=== PATIENT | female | born 1980 | race Hispanic/Latino ===

== ENCOUNTER 2017-05-26 00:08 | Emergency (ER) | payer MEDICAID ==
[2017-05-26 00:08] VITALS: BMI 21.4
[2017-05-26 00:29] VITALS: BP 133/75; PULSE 76; RESP 18; TEMP 97.6; O2SAT 100
--- NOTE | 2017-05-26 01:06 | ED PDOC ---
HPI: Headache Time Seen by Provider: 05/26/17 00:31 Chief Complaint (Nursing): Headache Additional Complaint(s): 36 YO F w/ a h/o anxiety presents to the ER, because she states she has been having increased "head pain", she currently denies any symptoms of such, but states when she does get this it is associated with light headedness and palpations. She has been dealing with a lot of stress in her life, with family issues, and these have caused her symptoms to worsen. She takes aspirin when she has these episodes. She has also been noticing increased bruising on her body, which has been occurring over the last two years, without any trauma and denies domestic violence. - Currently denies any chest pain, SOB, Nausea, Vomiting, weakness, dizziness PMH: Anxiety PSH: None Allergies Chlorpheniramine, nicacin, phenylephrine FH: Father had breast cancer, mother has htn and sjogrens SH: Social drinking, occasional cigarette, denies any illicit drug use Past Medical History Vital Signs: Last Vital Signs Temp 97.6 F 05/26/17 00:24 Pulse 76 05/26/17 00:24 Resp 18 05/26/17 00:24 BP 133/75 05/26/17 00:24 Pulse Ox 100 05/26/17 00:24 - Medical History PMH: Anemia, Anxiety Denies: Diabetes, Hepatitis, HIV, HTN, Seizures, Sexually Transmitted Disease - Family History Family History: States: Unknown Family Hx - Home Medications Home Medications: Ambulatory Orders Medication Instructions Recorded No Known Home Med 11/15/16 - Allergies Allergies/Adverse Reactions: Allergies Allergy/AdvReac Type Severity Reaction Status Date / Time chlorpheniramine Allergy SHORTNESS Verified 11/15/16 11:02 OF BREATH niacin Allergy REDNESS Verified 11/15/16 11:02 phenylephrine Allergy SHORTNESS Verified 11/15/16 11:02 OF BREATH Review of Systems ROS Statement: Except As Marked, All Systems Reviewed And Found Negative Constitutional: Negative for: Fever Eyes: Negative for: Vision Change Cardiovascular: Negative for: Chest Pain Physical Exam - Physical Exam Appears: Positive for: No Acute Distress Skin: Positive for: Normal Color (2 x2 cm superficial abrasion on left scapular region. Small bruise noticed under left tricep and right calf) Eye Exam: Positive for: Normal appearance Cardiovascular/Chest: Positive for: Regular Rate, Rhythm Respiratory: Positive for: Normal Breath Sounds Gastrointestinal/Abdominal: Positive for: Normal Exam, Soft DTR - Knee (R): 3+ DTR - Knee (L): 3+ Neurologic/Psych: Positive for: Alert, kaitara taraka II-XII, Oriented, Gait - Laboratory Results Result Diagrams: 05/26/17 01:17 05/26/17 01:17 - ECG O2 Sat by Pulse Oximetry: 100 - Progress ED Course And Treament: 36 YO F w/ h/o anxiety presents to the ER for having increased episodes of " head pains" 1) Stress induced headaches ( currently asymptomatic) - CBC, CMP: WNL - currently asymptomatic - Encouraged patient to exercise daily and incorporate meditation and stress relieving methods to her daily activity. 2) Easy bruising - CBC: Unremarkable - Coagulation profile: Unremarkable Medical Decision Making Medical Decision Makin YO F w/ h/o anxiety presents to the ER for having increased episodes of " head pains" 1) Stress induced headaches ( currently asymptomatic) - CBC, CMP: WNL - currently asymptomatic - Encouraged patient to exercise daily and incorporate meditation and stress relieving methods to her daily activity. 2) Easy bruising - CBC: Unremarkable - Coagulation profile: Unremarkable Disposition - Clinical Impression Clinical Impression: Bruising - Disposition Referrals: Bravo Landa MD [Staff Provider] - Disposition Time: 02:30 Condition: GOOD Additional Instructions: Avoid stresses, exercise daily, practice relaxation techniques. If symptoms worsen return to the ER. Follow up w/ PMD in 2-3 days. - CBC, CMP, coagulation profile was all within normal limit. Print Language: YORUBA
[2017-05-26 01:21] LABS: BASO # 0.1 K/uL (0.0-0.2); BASO % 1.1 % (0.0-2.0); EOS # 0.3 K/uL (0.0-0.7); EOS % 4.5 % (0.0-4.0); HEMATOCRIT 37.5 % (34.0-47.0); LYMPH # 1.7 K/uL (1.0-4.3); LYMPH % 30.7 % (20.0-40.0); MEAN CELL VOLUME 81.2 fl (81.0-99.0); MEAN CORPUSCULAR HEMOGLOBIN 26.4 pg (27.0-31.0); MEAN CORPUSCULAR HGB CONC 32.5 g/dL (33.0-37.0); MEAN PLATELET VOLUME 8.7 fl (7.2-11.7); MONO # 0.6 K/uL (0.0-0.8); MONO % 11.2 % (0.0-10.0); NEUT % 52.5 % (50.0-75.0); RED CELL DISTRIBUTION WIDTH 13.9 % (11.5-14.5); WHITE BLOOD COUNT 5.7 K/uL (4.8-10.8)
[2017-05-26 01:33] LABS: ALB/GLOB RATIO 1.4 (1.0-2.1); ALKALINE PHOSPHATASE 58 U/L (38-126); ALT/SGPT 35 U/L (9-52); AST/SGOT 24 U/L (14-36); BILIRUBIN,TOTAL 0.4 mg/dl (0.2-1.3); BLOOD UREA NITROGEN 18 mg/dl (7-17); CALCIUM 9.3 mg/dL (8.4-10.2); CARBON DIOXIDE 30 mmol/L (22-30); CHLORIDE 101 mmol/L (98-107); GFR AFRICAN-AMERICAN > 60; GLUCOSE,RANDOM 89 mg/dL (65-105); POTASSIUM 4.1 MMOL/L (3.6-5.0); SODIUM 139 mmol/l (132-148); TOTAL PROTEIN 7.8 G/DL (6.3-8.2)
[2017-05-26 01:46] LABS: PARTIAL THROMBOPLASTIN TIME 30.4 Seconds (25.6-37.1)
== END 2017-05-26 02:58 | disposition home or self-care (01) ==
LOC: H.ER 00:08
DX: R51 Headache (principal); F41.9 Anxiety disorder, unspecified

== ENCOUNTER 2018-02-15 21:17 | Emergency (ER) | payer MEDICAID ==
[2018-02-15 21:18] VITALS: BMI 21.4
[2018-02-15 21:24] VITALS: TEMP 99; O2SAT 100
[2018-02-15 22:46] LABS: HEMOGLOBIN 12.6 g/dL (12.0-16.0); MEAN CELL VOLUME 81.9 fl (81.0-99.0); MEAN CORPUSCULAR HGB CONC 31.8 g/dL (33.0-37.0); RBC 4.86 Mil/uL (3.80-5.20); RED CELL DISTRIBUTION WIDTH 14.5 % (11.5-14.5); WHITE BLOOD COUNT 5.3 K/uL (4.8-10.8)
[2018-02-15 23:17] LABS: ALB/GLOB RATIO 1.2 (1.0-2.1); ALBUMIN 4.4 g/dL (3.5-5.0); ALT/SGPT 27 U/L (9-52); AST/SGOT 26 U/L (14-36); BLOOD UREA NITROGEN 11 mg/dl (7-17); CALCIUM 9.5 mg/dL (8.4-10.2); GFR AFRICAN-AMERICAN > 60; GFR NON-AFRICAN AMERICAN > 60
--- NOTE | 2018-02-16 00:23 | ED PDOC ---
HPI: General Adult Time Seen by Provider: 02/15/18 21:37 Chief Complaint (Nursing): Abnormal Skin Integrity Chief Complaint (Provider): Abnormal skin, bump on forehead History Per: Patient History/Exam Limitations: no limitations Onset/Duration Of Symptoms: Days Have you had recent travel within the past 21 days to any of the following countries: [place], [place], [place] or [place]?: No Additional Complaint(s): 37 yo female with history of anxiety presents with "swelling" on the right forehead. Pt stats it was not there yesterday and she has been under a lot of stress. Pt states she was concerned about cancer. Pt denies recent weight loss. Pt states that she also feels a little lightheaded and has not eaten since 2 pm. Past Medical History Reviewed: Historical Data, Nursing Documentation, Vital Signs Vital Signs: Last Vital Signs Temp 99 F 02/15/18 21:22 Pulse 69 02/15/18 21:22 Resp 16 02/15/18 21:22 BP 142/91 H 02/15/18 21:22 Pulse Ox 100 02/16/18 00:23 - Medical History PMH: Anemia, Anxiety Denies: Diabetes, Hepatitis, HIV, HTN, Seizures, Sexually Transmitted Disease - Surgical History Surgical History: No Surg Hx - Family History Family History: States: Unknown Family Hx - Living Arrangements Living Arrangements: With Family - Social History Current smoker - smoking cessation education provided: No Alcohol: None Drugs: Denies - Home Medications Home Medications: Ambulatory Orders Medication Instructions Recorded No Known Home Med 11/15/16 - Allergies Allergies/Adverse Reactions: Allergies Allergy/AdvReac Type Severity Reaction Status Date / Time chlorpheniramine Allergy SHORTNESS Verified 02/15/18 21:21 OF BREATH niacin Allergy REDNESS Verified 02/15/18 21:21 phenylephrine Allergy SHORTNESS Verified 02/15/18 21:21 OF BREATH Review of Systems ROS Statement: Except As Marked, All Systems Reviewed And Found Negative Constitutional: Negative for: Fever, Chills Cardiovascular: Negative for: Chest Pain Respiratory: Negative for: Cough, Shortness of Breath Skin: Positive for: Other Physical Exam - Reviewed Nursing Documentation Reviewed: Yes Vital Signs Reviewed: Yes - Physical Exam Appears: Positive for: Well, Non-toxic, No Acute Distress Head Exam: Positive for: ATRAUMATIC, NORMAL INSPECTION, NORMOCEPHALIC Skin: Positive for: Warm. Negative for: Normal Color (Slighty raised area with mild erythema of the right upper forehead approx 1 cm) Eye Exam: Positive for: Normal appearance ENT: Positive for: Normal ENT Inspection Neck: Positive for: Normal, Painless ROM Cardiovascular/Chest: Positive for: Regular Rate, Rhythm Respiratory: Positive for: Normal Breath Sounds. Negative for: Accessory Muscle Use, Respiratory Distress Back: Positive for: Normal Inspection Extremity: Positive for: Normal ROM Neurologic/Psych: Positive for: Alert, Oriented - Laboratory Results Result Diagrams: 02/15/18 22:42 02/15/18 22:42 - ECG O2 Sat by Pulse Oximetry: 100 Medical Decision Making Medical Decision Making: Labs normal. Disposition - Clinical Impression Clinical Impression: Abnormality, skin, Lightheadedness - Patient ED Disposition Is Patient to be Admitted: No Counseled Patient/Family Regarding: Diagnosis, Need For Followup - Disposition Disposition: Routine/Home Disposition Time: 00:22 Condition: STABLE Instructions: Skin Biopsy Forms: [employer] ([place]ish)
[2018-02-16 00:39] VITALS: BP 112/72; PULSE 72; RESP 20
== END 2018-02-16 00:39 | disposition home or self-care (01) ==
LOC: H.ER 21:17
DX: R42 Dizziness and giddiness (principal); L98.8 Other specified disorders of the skin and subcutaneous tissue

== ENCOUNTER 2018-07-08 19:46 | Emergency (ER) | payer MEDICAID ==
[2018-07-08 19:47] VITALS: BMI 21.4
[2018-07-08 20:57] VITALS: RESP 16; TEMP 98.7
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
[2018-07-08 22:14] LABS: BARBITURATES, UR NEGATIVE (NEGATIVE); BENZODIAZEPINES, UR NEGATIVE (NEGATIVE); OPIATES, UR NEGATIVE (NEGATIVE); PHENCYCLIDINE, UR NEGATIVE (NEGATIVE)
[2018-07-08 23:35] VITALS: BP 114/84; PULSE 67; O2SAT 97
== END 2018-07-08 23:00 | disposition home or self-care (01) ==
LOC: H.ER 19:46
DX: Z02.83 Encounter for blood-alcohol and blood-drug test (principal); F41.9 Anxiety disorder, unspecified

== ENCOUNTER 2018-08-18 13:04 | Inpatient (IN) | payer MEDICAID ==
[2018-08-18 18:48] VITALS: BMI 19.2
--- NOTE | 2018-08-18 18:56 | CP.PCM.HP ---
History of Present Illness - History of Present Illness History of Present Illness: 38 y/o female with no PMH presented for admission for elective video EEG monitoring . History obtained from patient .She states that has been seeing the neurologist Dr. Morales for some blanking episodes on and off as well as some word foinding difficulties ,repetitive crackling sound in her head and fogginess in her thoughts. She states that lately has been having more stressful life events and has been under a lot of stress. She denies any chest pain . SOB, palpitations, PND ,orthopnea, urinary symptoms , changes in bowel movements, weight loss or gain , fever , chills, cough, ROJAS , blurry vision , nausea or vomiting. Patient being admitted for elective video EEG monitoring . Allergies ; Niacine, phenylephrine, Chlorpheniramine PMH ; None Medications; None Surgery ; none Family history ; Mother has history CAD/ CABG, Father had stroke Social history ; Single, lives in [place] alone, works in [employer] in the [place] , smokes 1-3 cig / day, consumes ETOH socially , denies any drug abuse PMD ; Dr. Morales ROS ; 14 point review of system negative except above Surrogate Decision maker ; Brother Bassam Present on Admission - Present on Admission Any Indicators Present on Admission: No Review of Systems - Review of Systems All systems: reviewed and no additional remarkable complaints except Past Patient History - Past Medical History & Family History Past Medical History?: No - Past Social History Smoking Status: Heavy Smoker > 10 Cigarettes Daily - CARDIAC Hx Hypertension: No - PULMONARY Hx Tuberculosis: No - NEUROLOGICAL Hx Seizures: No - HEMATOLOGICAL/ONCOLOGICAL Hx Anemia: Yes - GENITOURINARY/GYNECOLOGICAL Hx Sexually Transmitted Disorders: No - PSYCHIATRIC Hx Anxiety: Yes - SURGICAL HISTORY Hx Surgeries: No - ANESTHESIA Hx Anesthesia: Yes Hx Anesthesia Reactions: No Hx Malignant Hyperthermia: No Meds Allergies/Adverse Reactions: Allergies Allergy/AdvReac Type Severity Reaction Status Date / Time chlorpheniramine Allergy SHORTNESS Verified 02/15/18 21:21 OF BREATH niacin Allergy REDNESS Verified 02/15/18 21:21 phenylephrine Allergy SHORTNESS Verified 02/15/18 21:21 OF BREATH Physical Exam - Constitutional Appears: Well, Non-toxic, No Acute Distress - Head Exam Head Exam: ATRAUMATIC, NORMAL INSPECTION, NORMOCEPHALIC - Eye Exam Eye Exam: EOMI, Normal appearance Pupil Exam: NORMAL ACCOMODATION Additional comments: right superior palpebrae sty + - ENT Exam ENT Exam: Mucous Membranes Moist, Normal Exam - Neck Exam Neck exam: Positive for: Full Rom, Normal Inspection - Respiratory Exam Respiratory Exam: Clear to Auscultation Bilateral, NORMAL BREATHING PATTERN. absent: Rales, Rhonchi, Wheezes - Cardiovascular Exam Cardiovascular Exam: REGULAR RHYTHM, RRR, +S1, +S2. absent: JVD - GI/Abdominal Exam GI & Abdominal Exam: Normal Bowel Sounds, Soft. absent: Distended, Guarding, Rebound, Tenderness - Rectal Exam Rectal Exam: Deferred - Extremities Exam Extremities exam: Positive for: normal capillary refill, normal inspection, pedal pulses present. Negative for: calf tenderness, pedal edema - Back Exam Back exam: NORMAL INSPECTION - Neurological Exam Neurological exam: Alert, CN II-XII Intact, Oriented x3, Reflexes Normal - Psychiatric Exam Psychiatric exam: Normal Affect, Normal Mood - Skin Skin Exam: Dry, Intact, Normal Color, Warm Assessment & Plan - Assessment and Plan (Free Text) Assessment: 38 y/o female with no PMH presented for admission for elective video EEG monitoring . Will admit patient in ICU for continuos video EEG monitoring Consult with Dr. Morales
--- NOTE | 2018-08-19 10:27 | PCM.VEEG ---
Video EEG - Procedure Start Date: 08/18/18 Start Time: 20:20 End Date: 08/19/18 End Time: 04:35 - Interpretation Description of the study: DATA ACQUISITION: This was a multichannel inpatient video-EEG, a minimum of 22 channels were utilized, performed in accordance with recommendations specified by the [place] [employer] Society (El Cole et al. ACNS Guideline 1: Minimum Technical Requirements for Performing Clinical Electroencephalography. Journal of Clinical Neurophysiology 2016;33:303-7). The 10-20 electrode placement system was utilized in accordance with guidelines detailed by the International Federation of Clinical Neurophysiology (Kang Shahid et al. The Ten- Twenty Electrode System of the International Federation. Recommendations for the Practice of Clinical Neurophysiology: Guidelines of the International Federation of Clinical Physiology 1999; EEG Suppl. 52.). DATA REVIEW / SPIKE DETECTION / DIGITAL ANALYSIS: The entire EEG was scanned and reviewed. Synchronized audio and video recording were reviewed at the time of each alarm and whenever an abnormality or suspicious activity was noted. The entire recording was analyzed utilizing an automated digital spike and seizure analysis program and all automatic spike and seizure detections were manually reviewed. A compressed spectral array was displayed and reviewed alongside the raw EEG tracings. In addition, further analysis of the EEG was performed when abnormalities were identified, including montage changes, dipole source localization, and frequency band identification. This study was attended 24 hours per day. EEG Finding during wakefulness: During active states, the EEG was characterized by 14-25 Hz, 15-30 uV activity bilaterally in fronto-central regions. Resting wakefulness was characterized by a symmetric posterior dominant rhythm of 9 to 10 Hz, 30-50 uV, which was reactive to eye opening and closing. Drowsiness was associated with slow roving eye movements, slowing and fragmentation of the posterior dominant rhythm, and bilateral 4-7 Hz, 40-70 uV theta activity, sometimes with a shifting predominance. Hyperventilation and photic stimulation were not performed. EEG Finding during sleep: Light sleep was recorded and was characterized by fronto-central slowing at 5-7 H, 50-125 uV, sharp central vertex waves, bilateral sleep spindles, and K- complexes; shifting asymmetries were evident. Deeper stages of sleep were recorded and were characterized an increasing frequency of 1-4 Hz, 50-100 uV delta activity. REM sleep was also recorded and was characterized by mixed frequency (3-15 Hz) low voltage (< 20 uV) activity with clusters of rapid horizontal and vertical eye movements. There were no significant asymmetries noted during sleep. Interictal non-epileptiform abnormalities: None Interictal epileptiform abnormalities: None Ictal epileptiform abnormalities: None Induction procedures: None - Impression Impression: Normal Video EEG monitoring study.
--- NOTE | 2018-08-19 10:40 | CP.PCM.PN ---
Subjective - Date & Time of Evaluation Date of Evaluation: 08/19/18 Time of Evaluation: 10:00 - Subjective Subjective: patient seen bedside .Feeling well. No seizure activity noted . Hemodynamically stable. Objective - Vital Signs/Intake and Output Vital Signs (last 24 hours): Temp Pulse Resp BP Pulse Ox 97.9 F 53 L 20 103/53 L 99 08/19/18 08:00 08/19/18 08:00 08/19/18 08:00 08/19/18 08:00 08/19/18 08:00 Intake and Output: 08/19/18 08/19/18 06:59 18:59 Intake Total 230 Balance 230 - Medications Medications: Current Medications Acetaminophen (Tylenol 325mg Tab) 650 mg PO Q6 PRN PRN Reason: Headache - Constitutional Appears: Non-toxic, No Acute Distress - Head Exam Head Exam: ATRAUMATIC, NORMAL INSPECTION, NORMOCEPHALIC - Eye Exam Eye Exam: EOMI, Normal appearance, PERRL Pupil Exam: NORMAL ACCOMODATION - ENT Exam ENT Exam: Mucous Membranes Moist, Normal Exam - Neck Exam Neck Exam: Full ROM, Normal Inspection - Respiratory Exam Respiratory Exam: Clear to Ausculation Bilateral, NORMAL BREATHING PATTERN. absent: Rales, Rhonchi, Wheezes - Cardiovascular Exam Cardiovascular Exam: REGULAR RHYTHM, RRR, +S1, +S2. absent: JVD - GI/Abdominal Exam GI & Abdominal Exam: Soft, Normal Bowel Sounds. absent: Distended, Guarding, Tenderness, Rebound - Rectal Exam Rectal Exam: Deferred - Extremities Exam Extremities Exam: Full ROM, Normal Capillary Refill, Normal Inspection - Back Exam Back Exam: NORMAL INSPECTION - Neurological Exam Neurological Exam: Alert, Awake, CN II-XII Intact - Psychiatric Exam Psychiatric exam: Normal Affect - Skin Skin Exam: Dry, Normal Color, Warm Assessment and Plan - Assessment and Plan (Free Text) Assessment: 38 y/o female with no PMH presented for admission for elective video EEG monitoring . patient feeling well. No issues overnight Will continue EEG monitoring Follow up with neurology recommendations
--- NOTE | 2018-08-19 20:18 | CP.PCM.CON ---
History of Present Illness - History of Present Illness History of Present Illness: Neurology Consultation Note: Ms. Pisano is a 38-year-old woman who I know well from the outpatient office. She has a past history of seizure-like events that have a complex partial seizure-type of characteristic, but have never been confirmed with EEG and she does not want to take medications. She is currently admitted for 48 hour epilepsy monitoring. Review of Systems - Review of Systems All systems: reviewed and no additional remarkable complaints except Past Patient History - Past Medical History & Family History Past Medical History?: No - Past Social History Smoking Status: Light Smoker < 10 Cigarettes Daily - CARDIAC Hx Hypertension: No - PULMONARY Hx Tuberculosis: No - NEUROLOGICAL Hx Seizures: No - HEMATOLOGICAL/ONCOLOGICAL Hx Anemia: Yes - MUSCULOSKELETAL/RHEUMATOLOGICAL Hx Falls: No - GENITOURINARY/GYNECOLOGICAL Hx Sexually Transmitted Disorders: No - PSYCHIATRIC Hx Anxiety: Yes Hx Substance Use: No - SURGICAL HISTORY Hx Surgeries: No - ANESTHESIA Hx Anesthesia: Yes Hx Anesthesia Reactions: No Hx Malignant Hyperthermia: No Has any member of the family had a problem w/ anesthesia?: No Meds Allergies/Adverse Reactions: Allergies Allergy/AdvReac Type Severity Reaction Status Date / Time chlorpheniramine Allergy SHORTNESS Verified 02/15/18 21:21 OF BREATH niacin Allergy REDNESS Verified 02/15/18 21:21 phenylephrine Allergy SHORTNESS Verified 02/15/18 21:21 OF BREATH - Medications Medications: Current Medications Acetaminophen (Tylenol 325mg Tab) 650 mg PO Q6 PRN PRN Reason: Headache Physical Exam - Neurological Exam Neurological exam: Alert, CN II-XII Intact, Normal Gait, Oriented x3, Reflexes Normal Results - Vital Signs Recent Vital Signs: Last Vital Signs Temp 98.8 F 08/19/18 16:00 Pulse 70 08/19/18 16:00 Resp 16 08/19/18 16:00 BP 111/63 08/19/18 16:00 Pulse Ox 99 08/19/18 16:00 Assessment & Plan (1) Epilepsy Assessment and Plan: Will admit and evaluate for possible complex partial seizures. Will follow up in the outpatient setting and discuss results. Thank you. Status: Acute Priority: High
--- NOTE | 2018-08-20 11:10 | PCM.VEEG ---
Video EEG - Procedure Start Date: 08/19/18 Start Time: 09:55 End Date: 08/20/18 End Time: 06:45 - Interpretation Description of the study: DATA ACQUISITION: This was a multichannel inpatient video-EEG, a minimum of 22 channels were utilized, performed in accordance with recommendations specified by the [place] [employer] ([place] et al. ACNS Guideline 1: Minimum Technical Requirements for Performing Clinical Electroencephalography. Journal of Clinical Neurophysiology 2016;33:303-7). The 10-20 electrode placement system was utilized in accordance with guidelines detailed by the International Federation of Clinical Neurophysiology (Kang Shahid et al. The Ten- Twenty Electrode System of the International Federation. Recommendations for the Practice of Clinical Neurophysiology: Guidelines of the International Federation of Clinical Physiology 1999; EEG Suppl. 52.). DATA REVIEW / SPIKE DETECTION / DIGITAL ANALYSIS: The entire EEG was scanned and reviewed. Synchronized audio and video recording were reviewed at the time of each alarm and whenever an abnormality or suspicious activity was noted. The entire recording was analyzed utilizing an automated digital spike and seizure analysis program and all automatic spike and seizure detections were manually reviewed. A compressed spectral array was displayed and reviewed alongside the raw EEG tracings. In addition, further analysis of the EEG was performed when abnormalities were identified, including montage changes, dipole source localization, and frequency band identification. This study was attended 24 hours per day. EEG Finding during wakefulness: During active states, the EEG was characterized by 14-25 Hz, 15-30 uV activity bilaterally in fronto-central regions. Resting wakefulness was characterized by a symmetric posterior dominant rhythm of 9 to 10 Hz, 30-50 uV, which was reactive to eye opening and closing. Drowsiness was associated with slow roving eye movements, slowing and fragmentation of the posterior dominant rhythm, and bilateral 4-7 Hz, 40-70 uV theta activity, sometimes with a shifting predominance. Hyperventilation and photic stimulation were not performed. EEG Finding during sleep: Light sleep was recorded and was characterized by fronto-central slowing at 5-7 H, 50-125 uV, sharp central vertex waves, bilateral sleep spindles, and K- complexes; shifting asymmetries were evident. Deeper stages of sleep were recorded and were characterized an increasing frequency of 1-4 Hz, 50-100 uV delta activity. REM sleep was also recorded and was characterized by mixed frequency (3-15 Hz) low voltage (< 20 uV) activity with clusters of rapid horizontal and vertical eye movements. There were no significant asymmetries noted during sleep. Interictal non-epileptiform abnormalities: NOne Interictal epileptiform abnormalities: None Ictal epileptiform abnormalities: None Induction procedures: EVENTS There were 2 PB activations; 16;59 and 18;03. Patient at this time reported headaches. On Video on the first, a DR is in the room, she pushes the button. On the second she is alone, she pushes the button, no abnormal semiology is seen. EEG show normal awake architecture, no ictal/seizure activity. These events are not seizures - Impression Impression: This was a normal Video EEG monitoring study. There were 2 PB activations, they were not seizures, see above.
--- NOTE | 2018-08-20 12:04 | CP.PCM.PN ---
Subjective - Date & Time of Evaluation Date of Evaluation: 08/20/18 Time of Evaluation: 12:01 - Subjective Subjective: Ms. Pisano was seen and examined today at bedside in the epilepsy monitoring unit. She had no complaints; however, overnight she states she had episodes of numbness and was agitated. Review of the EEG at the time of her episodes did not show any epileptiform discharges. VEEG has been normal so far. Objective - Vital Signs/Intake and Output Vital Signs (last 24 hours): Temp Pulse Resp BP Pulse Ox 98.3 F 50 L 22 107/67 96 08/20/18 08:00 08/20/18 08:00 08/20/18 08:00 08/20/18 08:00 08/20/18 08:00 Intake and Output: 08/20/18 08/20/18 06:59 18:59 Intake Total 120 Balance 120 - Medications Medications: Current Medications Acetaminophen (Tylenol 325mg Tab) 650 mg PO Q6 PRN PRN Reason: Headache - Neurological Exam Neurological Exam: Alert, Awake, CN II-XII Intact, Normal Gait, Oriented x3, Reflexes Normal Neuro motor strength exam: Left Upper Extremity: 5, Right Upper Extremity: 5, Left Lower Extremity: 5, Right Lower Extremity: 5 Assessment and Plan (1) Epilepsy Assessment & Plan: The patient had several episodes for which she pushed the button to alert for possible seizures, but these did not correlate with epileptiform discharges. She may not have epilepsy. Status: Acute
[2018-08-20 12:27] VITALS: O2SAT 98
--- NOTE | 2018-08-20 15:49 | CP.PCM.DIS ---
Provider - Provider Date of Admission: 08/18/18 18:48 Attending physician: Maggie De La Cruz MD Primary care physician: Dr. Morales Consults: Neurology consult Time Spent in preparation of Discharge (in minutes): 10 Hospital Course - Lab Results Lab Results: Micro Results 08/18/18 07:54 Naris MRSA Culture (Admit) - Final MRSA NOT DETECTED - Hospital Course Hospital Course: 38 y/o female with no PMH , suspicious foe seizure disorder was admitted for continuos video EEG monitoring for 48 hours as per neurology recommendations. Will discharge home in stable conditions with follow up with Dr. Morales as out patient Discharge Exam - Head Exam Head Exam: ATRAUMATIC, NORMAL INSPECTION, NORMOCEPHALIC - Eye Exam Eye Exam: EOMI, PERRL Pupil Exam: NORMAL ACCOMODATION - ENT Exam ENT Exam: Mucous Membranes Moist, Normal Exam - Neck Exam Neck exam: Full Rom, Normal Inspection - Respiratory Exam Respiratory Exam: Clear to PA & Lateral, NORMAL BREATHING PATTERN. absent: Rales, Rhonchi, Wheezes - Cardiovascular Exam Cardiovascular Exam: REGULAR RHYTHM, RRR, +S1, +S2. absent: JVD - GI/Abdominal Exam GI & Abdominal Exam: Normal Bowel Sounds, Soft. absent: Distended, Guarding, Rebound, Tenderness - Rectal Exam Rectal Exam: Deferred - Extremities Exam Extremities exam: normal capillary refill, normal inspection, pedal pulses present - Back Exam Back exam: NORMAL INSPECTION - Neurological Exam Neurological exam: Alert, CN II-XII Intact, Oriented x3 - Psychiatric Exam Psychiatric exam: Normal Affect - Skin Skin Exam: Dry, Intact, Normal Color, Warm Discharge Plan - Follow Up Plan Condition: GOOD Disposition: HOME/ ROUTINE Patient education suggested?: Yes Referrals: Henry Morales MD [Medical Doctor] -
[2018-08-20 16:13] VITALS: BP 125/66; PULSE 63; RESP 26; TEMP 97.5
== END 2018-08-20 18:51 | disposition home or self-care (01) | DRG 890 ==
LOC: H.ICU/CCU 18:48
PROVIDERS: ADMIT Hospitalist; ATTEND Hospitalist
DX: G40.209 Localization-related (focal) (partial) symptomatic epilepsy and epileptic syndromes with complex partial seizures, not intractable, without status epilepticus (principal); F41.9 Anxiety disorder, unspecified; F17.210 Nicotine dependence, cigarettes, uncomplicated; Z82.3 Family history of stroke